=== PATIENT | female | born 1970 | race Two or more races ===

== ENCOUNTER → 2023-07-01 06:00 | Outpatient (CLI) | payer OTHER ==
[~2023-07-01] VITALS: Ht 149.9 cm; Wt 142.9 kg
[~2023-07-01 06:00] MED LIST: CARVEDILOL6.25 MG; CLONAZEPAM1 M1 PO; DAFLONEX-XL 11300 MG PO; ELAVIL PO; LEXAPRO20 MG PO; OTEZLA30 MG PO; RISPERDAL1 MG PO; TRENTAL PO; ZESTRIL20 MG PO
[2023-07-01 09:41] LABS: HEMATOCRIT 36.9 % (36.0-45.00); HEMOGLOBIN 11.9 g/dL (12.0-15.00); MEAN CELL VOLUME 72.9 fL (80.00-100.00); MEAN CORPUSCULAR HEMOGLOBIN 23.6 pg (27.00-32.0); MEAN CORPUSCULAR HGB CONC 32.3 g/dl (32.0-36.0); PLATELET COUNT 262 K/uL (150-450); RED BLOOD COUNT 5.06 M/uL (4.00-6.00); RED CELL DISTRIBUTION WIDTH 14.8 % (11.5-14.5)
[2023-07-01 10:06] LABS: PH,URINE 6.5; URINE BILIRRUBIN SMALL (NEGATIVE); URINE BLOOD LARGE; URINE GLUCOSE NEGATIVE (NEGATIVE); URINE LEUKOCYTE NEGATIVE; URINE NITRATE NEGATIVE; URINE UROBILINOGEN 0.2 E.U./dl
[2023-07-01 10:07] LABS: ALBUMIN 3.2 gm/dL (3.4-5.0); BILIRUBIN TOTAL 0.23 mg/dL (0.3-1.2); CALCIUM 9.3 mg/dL (8.5-10.1); CREATININE SERUM 0.62 mg/dL (0.55-1.02); GFR 101.89; GLOBULINA 3.9 G/DL (2.4-3.5); POTASSIUM 4.07 mEq/L (3.5-5.1); TOTAL PROTEIN 7.1 gm/dL (6.4-8.2)
[2023-07-01 10:07] LABS: URINE APPEARANCE TURBID; URINE COLOR BROWN; URINE PROTEIN 100 (NEGATIVE)
[2023-07-01 10:08] LABS: URINE BACTERIA MODERATE; URINE EPITHELIAL CELLS 0-4 /HPF; URINE RBC LOADED /HPF
[2023-07-01 10:11] LABS: INR 0.97; PROTHROMBIN TIME 10.2 SECONDS (9.0-11.5)
== END | disposition home or self-care (01) ==
LOC: LAB 06:00 → ADM 07:45 → CIR.AMB 07-04 07:00 → EDSTATUS 07-04 07:45 → CIR.AMB 07-04 07:45
PROVIDERS: ATTEND Obstetrics & Gynecology Gynecologic Oncology
DX: Z01.818 Encounter for other preprocedural examination (principal); Z01.811 Encounter for preprocedural respiratory examination; Z01.810 Encounter for preprocedural cardiovascular examination; Z01.812 Encounter for preprocedural laboratory examination; C50.919 Malignant neoplasm of unspecified site of unspecified female breast; N83.292 Other ovarian cyst, left side; R97.1 Elevated cancer antigen 125 [CA 125]; I10 Essential (primary) hypertension; D64.9 Anemia, unspecified; N39.0 Urinary tract infection, site not specified; Z20.822 Contact with and (suspected) exposure to COVID-19; R79.89 Other specified abnormal findings of blood chemistry

== ENCOUNTER 2023-11-28 05:50 | Day surgery (SDC) | payer OTHER ==
[2023-11-20 11:36] LABS: HEMATOCRIT 37.7 % (36.0-45.00); HEMOGLOBIN 12.1 g/dL (12.0-15.00); MEAN CELL VOLUME 72.9 fL (80.00-100.00); MEAN CORPUSCULAR HEMOGLOBIN 23.5 pg (27.00-32.0); MEAN CORPUSCULAR HGB CONC 32.2 g/dl (32.0-36.0); PLATELET COUNT 239 K/uL (150-450); RED BLOOD COUNT 5.16 M/uL (4.00-6.00); RED CELL DISTRIBUTION WIDTH 15.6 % (11.5-14.5)
[2023-11-20 11:39] LABS: PH,URINE 5.5 (5.0-8.0); URINE APPEARANCE Clear; URINE BILIRRUBIN Negative (NEGATIVE); URINE BLOOD Negative; URINE COLOR Yellow; URINE GLUCOSE Negative (NEGATIVE); URINE LEUKOCYTE Negative; URINE NITRATE Negative; URINE PROTEIN Negative (NEGATIVE); URINE UROBILINOGEN 0.2 E.U./dl
[2023-11-20 11:40] LABS: URINE BACTERIA 1093.6 uL (0.0-1933); URINE EPITHELIAL CELLS 14.2 uL (0.0-38.8); URINE RBC 5.7 uL (0.0-20.8); URINE WBC 4.3 uL (0.0-23.2)
[2023-11-20 12:01] LABS: INR 0.96; PARTIAL THROMBOPLASTIN TIME 29.1 SECONDS (22.0-34.0); PROTHROMBIN TIME 10.1 SECONDS (9.0-11.5)
[2023-11-20 12:10] LABS: ALBUMIN 3.3 gm/dL (3.4-5.0); BILIRUBIN TOTAL 0.28 mg/dL (0.3-1.2); CALCIUM 10.1 mg/dL (8.5-10.1); CREATININE SERUM 0.65 mg/dL (0.55-1.02); GFR 96.09; GLOBULINA 3.9 G/DL (2.4-3.5); POTASSIUM 4.14 mEq/L (3.5-5.1); TOTAL PROTEIN 7.2 gm/dL (6.4-8.2)
[2023-11-28] MEDS ORDERED: CEFOXITIN SODIUM 2,000 MG VIAL IV ONE ×2 (09:26→13:30)
[2023-11-28] MEDS ORDERED: POVIDONE-IODINE 118 ML BOTT TOP ONE ×2 (11:54→13:30)
[2023-11-28] MEDS ORDERED: SUGAMMADEX SODIUM 200 MG/2 ML VIAL IV ONE (13:48)
[2023-11-28] MEDS ORDERED: KETOROLAC TROMETHAMINE 30 MG VIAL IU ONE (14:00)
[2023-12-02] MEDS ORDERED: SUGAMMADEX SODIUM 200 MG/2 ML VIAL IV ONE (14:45)
== END 2023-11-28 16:45 | disposition home or self-care (01) ==
LOC: CIR.AMB 05:50
PROVIDERS: ATTEND Obstetrics & Gynecology Gynecologic Oncology
DX: N83.291 Other ovarian cyst, right side (principal); N83.312 Acquired atrophy of left ovary; D39.11 Neoplasm of uncertain behavior of right ovary